=== PATIENT | female | born 1960 | race Hispanic/Latino ===

== ENCOUNTER 2021-02-11 08:00 | Outpatient (RCR) | payer OTHER | END 2021-02-12 | LOC: EDBD → PT 08:00 | PROVIDERS: ATTEND Specialist | DX: S83.221A Peripheral tear of medial meniscus, current injury, right knee, initial encounter (principal) ==

== ENCOUNTER 2021-02-15 07:59 | Outpatient (RCR) | payer OTHER | END 2021-03-14 | LOC: PT 07:59 | PROVIDERS: ATTEND Specialist | DX: S83.221A Peripheral tear of medial meniscus, current injury, right knee, initial encounter (principal) ==

== ENCOUNTER → 2021-11-04 | Outpatient (CLI) | payer OTHER | LOC: CT 07:33 | PROVIDERS: ATTEND Specialist | DX: S92.352A Displaced fracture of fifth metatarsal bone, left foot, initial encounter for closed fracture (principal); S92.215A Nondisplaced fracture of cuboid bone of left foot, initial encounter for closed fracture | CPT/HCPCS: 77080 ==

== ENCOUNTER 2021-11-18 21:02 | Inpatient (IN) | payer OTHER ==
[~2021-11-18] VITALS: Ht 160 cm; Wt 57.2 kg
[2021-11-18] MEDS ORDERED: FAMOTIDINE 20 MG/2 ML VIAL IV STA (22:54)
[2021-11-18] MEDS ORDERED: SODIUM CHLORIDE 0.9% 1000ML 1,000 ML IV SCH (23:00)
[2021-11-19] MEDS ORDERED: ONDANSETRON HCL INJ 2MG/ML 2ML 2 MG/ML VIAL IV STA (00:10)
[2021-11-19] MEDS ORDERED: KETOROLAC TROMETHAMINE 30 MG/ML VIAL IV STA (00:10)
[2021-11-19] MEDS ORDERED: ONDANSETRON HCL INJ 2MG/ML 2ML 2 MG/ML VIAL ONE (00:14)
[2021-11-19] MEDS ORDERED: SODIUM CHLORIDE 0.9% 1000ML 1,000 ML ONE (00:15)
[2021-11-19] MEDS ORDERED: FAMOTIDINE 20 MG/2 ML VIAL IV ONE (00:15)
[2021-11-19] MEDS ORDERED: IOPAMIDOL 370 MG/ML 100 ML INFUS..BTL INJ ONE (00:35)
[2021-11-19] MEDS ORDERED: KETOROLAC TROMETHAMINE 30 MG/ML VIAL ONE (02:15)
[2021-11-19] MEDS ORDERED: DEXTROSE 50% SYRINGE 50 ML IV PRN (03:00)
[2021-11-19] MEDS ORDERED: Morphine 4mg INJECTION 4 MG/ML INJ IV PRN (03:00)
[2021-11-19] MEDS ORDERED: ONDANSETRON HCL INJ 2MG/ML 2ML 2 MG/ML VIAL IV PRN (03:00)
[2021-11-19] MEDS ORDERED: PIPERACILLIN/TAZOBACTAM 3.375 GM VIAL ONE (03:31)
[2021-11-19] MEDS ORDERED: SODIUM CHLORIDE 0.9% 100 ML ONE (03:31)
[2021-11-19] MEDS ORDERED: Morphine 2mg Syringe 2 MG/ML SYR IV PRN (04:30)
[2021-11-19] MEDS: SODIUM CHLORIDE 0.9% 1000ML 1,000 ML IV SCH ×3 (04:32→23:00)
[2021-11-19] MEDS: INSULIN LISPRO 100 UNIT/1 ML 3ML VIAL SQ SCH ×4 (07:30→21:00)
[2021-11-19 09:15] VITALS: BP 115/47
[2021-11-19 09:30] VITALS: BP 116/95
[2021-11-19 11:48] VITALS: BP 116/95
[2021-11-19] MEDS ORDERED: METOPROLOL SUCC25 MG PO (13:28)
[2021-11-19] MEDS ORDERED: ATORVASTATIN CA40 MG PO (13:28)
[2021-11-19] MEDS ORDERED: ALLEGRA-D 24 H1 EACH PO (13:28)
[2021-11-19] MEDS ORDERED: SYNJARDY 12.5-1 EACH (15:50)
[2021-11-19] MEDS ORDERED: ONE DAILY FOR1 EAC3 (15:50)
[2021-11-19] MEDS ORDERED: CALCIUM600 MG (15:50)
[2021-11-19] MEDS ORDERED: VIT D2 (15:50)
[2021-11-19] MEDS ORDERED: MULTIVITAMIN (15:53)
[2021-11-19] MEDS ORDERED: [UNRECOGNIZED DRUG - OTHER] (15:53)
[2021-11-19 16:13] VITALS: BP 96/44
[2021-11-19 20:00] VITALS: BP 96/44
[2021-11-19 20:11] VITALS: BP 117/50
[2021-11-19 20:11] LABS: CHOL/HDL RATIO 2.9 (3.0-3.6)
[2021-11-19] MEDS ORDERED: ACETAMINOPHEN/CODEINE 300MG - 30MG TAB PO PRN (20:45)
[2021-11-19] MEDS: ATORVASTATIN 40 MG TAB PO SCH (22:17)
[2021-11-20] VITALS (8 sets, daily range): BP systolic 113–136; BP diastolic 42–98
[2021-11-20] MEDS: ACETAMINOPHEN 325 MG TAB PO PRN ×2 (01:46→09:00)
[2021-11-20] MEDS: INSULIN LISPRO 100 UNIT/1 ML 3ML VIAL SQ SCH ×4 (07:30→21:45)
[2021-11-20] MEDS: PANTOPRAZOLE SOD 40 MG TABEC PO SCH (09:00)
[2021-11-20] MEDS: SODIUM CHLORIDE 0.9% 1000ML 1,000 ML IV SCH ×2 (09:00→17:49)
[2021-11-20 12:00] LABS: BASOPHILS % 0.5 % (0.0-1.0); EOSINOPHILS # (AUTO) 0.2 (0.0-0.4); EOSINOPHILS % 3.5 % (0.0-6.0); HEMATOCRIT 35.8 % (34.2-44.1); HEMOGLOBIN 11.9 g/dL (12.0-16.0); LYMPHOCYTES # (AUTO) 1.8 (1.0-3.2); LYMPHOCYTES % 30.4 % (18.0-39.1); MEAN CORPUSCULAR HEMOGLOBIN 31.2 pg (28-32); MEAN CORPUSCULAR HGB CONC 33.2 g/dL (31-35); MONOCYTES # (AUTO) 0.6 (0.2-0.8); MONOCYTES % 10.4 % (4.4-11.3); NEUTROPHILS # (AUTO) 3.3 (2.1-6.9); NEUTROPHILS % 54.9 % (38.7-80.0); PLATELET COUNT 73 x10e3/uL (140-360); RED BLOOD COUNT 3.81 x10e6/uL (3.6-5.1); RED CELL DISTRIBUTION WIDTH 13.4 % (11.7-14.4)
[2021-11-20 12:22] LABS: ANION GAP 13.1 mmol/L (8-16); CREATININE, SERUM 0.58 mg/dL (0.57-1.11); POTASSIUM 4.1 mmol/L (3.5-5.1)
[2021-11-20 12:24] LABS: ALBUMIN 3.1 g/dL (3.5-5.0); BILIRUBIN,DIRECT 0.3 mg/dL (0.0-0.5)
[2021-11-20] MEDS: ATORVASTATIN 40 MG TAB PO SCH (21:02)
[2021-11-21] VITALS: BP 101/84
[2021-11-21] MEDS: SODIUM CHLORIDE 0.9% 1000ML 1,000 ML IV SCH ×2 (02:25→05:00)
[2021-11-21 04:00] VITALS: BP 149/64
[2021-11-21 07:20] VITALS: BP 149/64
[2021-11-21] MEDS ORDERED: ONDANSETRON ODT4 MG PO (07:24)
[2021-11-21] MEDS ORDERED: METRONIDAZOLE500 MG PO (07:24)
[2021-11-21] MEDS ORDERED: PANTOPRAZOLE SO40 MG PO (07:24)
[2021-11-21] MEDS: INSULIN LISPRO 100 UNIT/1 ML 3ML VIAL SQ SCH (07:30)
[2021-11-21 07:52] VITALS: BP 127/74
[2021-11-21] MEDS: PANTOPRAZOLE SOD 40 MG TABEC PO SCH (08:12)
[2021-12-04] MEDS ORDERED: TRESIBA100 UNIT/1 SC (11:12)
[2021-12-04] MEDS ORDERED: HUMALOG MI100 UNIT/2 SQ (11:14)
== END 2021-11-21 08:59 | disposition home or self-care (01) | DRG 392 ==
LOC: FSED 21:16 → ERHOLD 11-19 02:59 → MED/SURG2 11-19 09:22
PROVIDERS: ADMIT Internal Medicine; ATTEND Internal Medicine
DX: K52.9 Noninfective gastroenteritis and colitis, unspecified (principal); E86.0 Dehydration; K76.0 Fatty (change of) liver, not elsewhere classified; R11.2 Nausea with vomiting, unspecified; E11.9 Type 2 diabetes mellitus without complications; Z20.822 Contact with and (suspected) exposure to COVID-19; I10 Essential (primary) hypertension; E78.5 Hyperlipidemia, unspecified; K29.70 Gastritis, unspecified, without bleeding; M81.0 Age-related osteoporosis without current pathological fracture
CPT/HCPCS: 36415; 74177; 80048; 80061; 80076; 81003; 82553; 82948; 83036; 84484; 85025; 93005; 96374; 96376; 99284; J1885; J2270; J2405; J2543; J7030; J7050; Q9967